=== PATIENT | female | born 1995 | race Caucasian/White ===

== ENCOUNTER → 2016-04-17 | Outpatient (CLI) | payer OTHER ==
--- OUTSIDE RECORDS SUMMARY | 2016-04-17 15:31 | XMS REPORT | Continuity of Care Document ---
Author Author [facility] Organization [facility] Address Unknown Phone Unavailable Allergies Medications Problems Date Dx Coded Attending Type Code Diagnosis Diagnosed By 05/05/2012 Vanna Fuller MD Final 780.93 MEMORY LOSS 05/05/2012 Vanna Fuller MD Final 784.0 HEADACHE 11/09/2012 DOMENICA TURNER DO V06.1 TDAP DX 11/09/2012 AMANDA TA APRN V06.1 TDAP DX 11/09/2012 FIDEL SANTOS APRN V06.1 TDAP DX 06/05/2013 AMANDA TA APRN 599.0 URINARY TRACT INFECTION 06/05/2013 FIDEL SANTOS APRN 599.0 URINARY TRACT INFECTION 03/17/2014 FIDEL SANTOS APRN V25.01 CONTRACEPTION - ORAL CONTRACEPTION 03/17/2014 FIDEL SANTOS APRN V25.43 IMPLANON REMOVAL Procedures Code [place] [address] IMPLANON REMOVAL 03/17/2014 Results Encounters ACCT No. Visit Date/Time Discharge Status Pt. Type Provider Facility Loc./Unit Complaint [id number] 05/05/2012 16:00:00 2012 23:59:59 CLS Outpatient Vanna Fuller MD [facility] on [address]
--- NOTE | 2016-04-17 16:52 | Diagnostic Imaging Report ---
EXAMINATION: Pelvic ultrasound. INDICATION: Left lower quadrant pain. COMPARISON: There are no prior studies available for comparison. FINDINGS: The uterus is nongravid and not large measuring 7.1 x 4.1 x 3.2 cm. There is no focal mass involving the uterus to suggest a fibroid. The endometrial lining does not appear to be thickened. In the left adnexa, there is a sizable 5.8 x 4.1 x 4.8 cm hypoechoic area with fairly uniform internal echoes. This could represent an ovarian cyst which has been complicated by infection and/or hemorrhage. The possibility that this is related to an endometrioma should also be considered. Neoplasm would be a remote consideration in a patient of this age. There is also a small amount of free fluid in the left adnexa. If further evaluation of this finding is desired, then laparoscopy would be recommended. If there is no intervention at this time, then a short-term (2-4 week) followup ultrasound exam should be obtained. The right ovary is not visualized. IMPRESSION: 1. There is a sizable 5.8 x 4.1 x 4.8 cm hypoechoic area with internal echoes in the left adnexa. Considerations and recommendations as above. 2. There is no acute pelvic abnormality noted otherwise. 3. The right ovary was not visualized. Dictated by: Dictated on workstation # [id number]
== END ==
LOC: RAD 15:27
PROVIDERS: ATTEND Nurse Practitioner Family
DX: R10.32 Left lower quadrant pain (principal); R10.2 Pelvic and perineal pain
CPT/HCPCS: 76830; 76856